=== PATIENT | male | born 1995 | race African-American/Black ===

== ENCOUNTER 2020-03-11 19:08 | Emergency (ER) | payer SELFPAY ==
[~2020-03-11 19:08] MED LIST: AMOXIL400 MG/5 M OR; BACTRIM DS1 TAB PO; KEFLEX500 MG OR; NO HOME MEDS
[2020-03-11 19:29] LABS: URINE BILIRUBIN - DIPSTICK NEGATIVE (NEGATIVE); URINE BLOOD DIPSTICK NEGATIVE (NEGATIVE); URINE COLOR YELLOW; URINE GLUCOSE - DIPSTICK NEGATIVE (NEGATIVE); URINE KETONE NEGATIVE (NEGATIVE); URINE LEUK ESTERASE NEGATIVE (NEGATIVE); URINE NITRITE - DIPSTICK NEGATIVE (Negative); URINE PH 6.5 (4.5-8.0); URINE PROTEIN - DIPSTICK NEGATIVE (NEG-TRACE); URINE SPECIFIC GRAVITY 1.015; URINE UROBILINOGEN - DIPSTICK 0.2 E.U./dL (0.2)
[2020-03-11 20:25] VITALS: BP 140/85
== END 2020-03-11 20:25 | disposition home or self-care (01) | DRG 696 ==
LOC: ED 19:08
DX: R30.0 Dysuria (principal)
CPT/HCPCS: J0561

== ENCOUNTER 2020-06-26 19:20 | Emergency (ER) | payer SELFPAY ==
[~2020-06-26] VITALS: Ht 182.9 cm; Wt 102.2 kg
[2020-06-26 19:52] VITALS: BP 136/80
== END 2020-06-26 19:53 | disposition home or self-care (01) | DRG 923 ==
LOC: ED 19:20
DX: T67.5XXA Heat exhaustion, unspecified, initial encounter (principal); X30.XXXA Exposure to excessive natural heat, initial encounter